=== PATIENT | male | born 1965 | race Caucasian/White ===

== ENCOUNTER 2016-09-29 01:44 | Emergency (ER) | payer OTHER ==
[~2016-09-29] VITALS: Ht 180.3 cm; Wt 127.3 kg
[~2016-09-29 01:44] MED LIST: ACTOS30 MG PO; BENICAR40 MG PO; CEFTIN500 MG PO; FENOFIBRATE145 M1 PO; GLUCOPHAGE500 MG PO; NORCO 5/3251 TABLET PO; PAXIL20 MG PO; PERCOCET 5/31 TABLET PO; PREDNISONE20 MG PO; PROTONIX40 MG PO; SIMVASTATIN40 MG PO; TRILIPIX135 MG PO; ZITHROMAX Z-PA250 MG PO
[2016-09-29] MEDS ORDERED: PREDNISONE20 MG PO (02:41)
[2016-09-29 02:51] VITALS: BP 155/88
== END 2016-09-29 02:59 | disposition home or self-care (01) ==
LOC: EME 01:44
DX: J30.9 Allergic rhinitis, unspecified (principal)
CPT/HCPCS: 87502; 99281; 99284; J7512